=== PATIENT | male | born 1950 | race Caucasian/White ===

== ENCOUNTER 2016-07-02 07:54 | Day surgery (SDC) | payer OTHER ==
[2016-06-30 15:58] VITALS: BMI 26.6
[2016-07-02] MEDS ORDERED: oxyCODONE HCL 5 MG TABLET PO PRN (09:42)
[2016-07-02] MEDS ORDERED: PROMETHAZINE HCL 25 MG/1 ML VIAL IVPUSH PRN (09:42)
[2016-07-02] MEDS ORDERED: ONDANSETRON 4 MG/2 ML VIAL IVPUSH PRN (09:42)
--- NOTE | 2016-07-02 09:44 | HP ---
History & Physical Update - History History: No Change - Physical Physical: No Change - Assessment Assessment: No Change - Plan Plan: No Change
[2016-07-02] MEDS ORDERED: LACTATED RINGERS SOLUTION 1,000 ML IV SCH (09:45)
[2016-07-02] MEDS ORDERED: BUPIVACAINE HCL/PF 0.5% (5MG/ML) 10 ML VIAL ONE ×2 (09:58→11:15)
[2016-07-02] MEDS ORDERED: LIDOCAINE HCL 2% (20ML MULTI-DOSE VIAL) NR ONE (10:12)
[2016-07-02] MEDS ORDERED: MIDAZOLAM HCL 2 MG/2 ML SINGLE DOSE VIAL ONE (10:12)
[2016-07-02] MEDS ORDERED: PROPOFOL 20 ML ONE (10:12)
[2016-07-02] MEDS ORDERED: KETOROLAC TROMETHAMINE 30 MG/1 ML VIAL ONE (10:12)
[2016-07-02] MEDS ORDERED: ceFAZolin SODIUM 1 GM VIAL ONE (10:12)
[2016-07-02] MEDS ORDERED: ROCURONIUM BROMIDE 50 MG/5 ML VIAL ONE (10:12)
[2016-07-02] MEDS ORDERED: LIDOCAINE HCL 1%, 10 MG/ML (20ML VIAL) ONE (10:14)
[2016-07-02] MEDS ORDERED: ceFAZolin SODIUM 1 GM VIAL IVPB ONE (10:34)
[2016-07-02] MEDS ORDERED: GLYCOPYRROLATE 0.2 MG/1 ML VIAL ONE (11:11)
[2016-07-02] MEDS ORDERED: NEOSTIGMINE METHYLSULFATE 0.5 MG/ML - 10 ML MDV ONE (11:11)
[2016-07-02] MEDS ORDERED: BUPIVACAINE HCL/PF 0.5% (5MG/ML) 10 ML VIAL IJ ONE (11:12)
--- NOTE | 2016-07-02 12:00 | OP ---
Operative Note - Note: Operative Date: 07/02/16 Pre-Operative Diagnosis: Incarcerated left inguinal hernia. Operation: Repair of incarcerated left inguinal hernia with mesh. Findings: Large sac, with properitoneal fat herniating through the internal ring. Post-Operative Diagnosis: Same as Pre-op Surgeon: Danny Stein Pyrometer Operator: Torri Kenyon Anesthesiologist/[employer] MEDIA SPECIALIST: Sohan Jones Anesthesia: General Specimens Removed: Hernial sac Estimated Blood Loss (mls): 5 Operative Report Dictated: Yes
[2016-07-02 12:21] VITALS: TEMP 97.7
[2016-07-02] MEDS ORDERED: oxyCODONE HCL 5 MG TABLET ONE (13:38)
[2016-07-02] MEDS ORDERED: ONDANSETRON 4 MG/2 ML VIAL ONE (13:46)
--- NOTE | 2016-07-02 14:18 | SURG ---
Surgery Account Manager Note Account Manager: Torri Kenyon PA-C Date of Service: 07/02/16 Diagnosis: Incarcerated left inguinal hernia Procedure: Repair of incarcerated left inguinal hernia with mesh I was present for the entirety of the operative procedure. For further detail, please refer to operative report. Visit type - Case Type Case Type: Scheduled Admission - New patient This patient is new to me today: Yes Date on this admission: 07/02/16
--- NOTE | 2016-07-02 14:22 | OP ---
DATE OF OPERATION: 07/02/2016 PREOPERATIVE DIAGNOSIS: Incarcerated left inguinal hernia. POSTOPERATIVE DIAGNOSIS: Incarcerated left inguinal hernia. OPERATIVE PROCEDURE: Repair of incarcerated left inguinal hernia with plug and mesh. SURGEON: Alfredo Stein MD ICING AND GLAZE MAKER: RAN Calderon ANESTHESIA: General anesthesia. ANESTHESIOLOGIST: Sohan Jones MD OPERATIVE DESCRIPTION: This 65-year-old man had pain in the left groin with a large swelling in the left groin. Patient was found to have incarcerated left inguinal hernia. He is status post repair of right inguinal hernia in the past. Consent was obtained. Risks, benefits, and complications were discussed with the patient. He was given 1 g of Ancef. Timeout was called. General anesthesia was administered. The left groin was painted and draped. An incision was made in the left groin along a skin crease which was deepened to incise the skin, subcutaneous tissues, Agatha fascia, and external oblique aponeurosis. The ilioinguinal nerve was identified and preserved throughout the procedure. Cord structures were then isolated around a 1/2-inch [place] drain. The internal and external spermatic, cremasteric muscle, and fascia were then incised and the contents of the cord were exposed. The large sac was from the rest of the structures. This was carried all around to the internal ring. The sac had a wide neck and also had properitoneal fat protruding through the widened internal ring. The contents of the sac were then reduced. The sac was suture ligated at the neck with 3-0 Vicryl sutures. The sac was then divided distal to the ligature and sent to Pathology as a specimen. The peritoneum at the internal ring and behind the transversus abdominis muscle and fascia was then circumferentially and pushed into the abdominal cavity. A plug was then inserted through the internal ring. This was anchored with 2-0 Prolene sutures, 1 above and medial to the ring, another above and lateral to the ring. This was introduced through the internal oblique, transversus abdominis muscle, and fascia, brought through the internal ring, caught the outer leaf of the mesh, and then was reintroduced through the internal ring and brought out through the transversus abdominis and the internal oblique muscle. The plug was then inserted through the internal ring and placed behind the transversus abdominis muscle and fascia. Mesh was then placed across the posterior wall of the inguinal canal. This was anchored at the level of the internal ring with 2-0 Prolene sutures. The inferior leaf of the mesh was placed over the shelving edge of the inguinal ligament and anchored with the VersaTack tacking device. The superior leaf of the mesh was incorporated to the 2-0 Prolene suture holding the plug behind the transversus abdominis muscle and fascia and this was brought through the mesh and the knot was fashioned. The lateral suture incorporated both the leaves of the mesh as it was brought around the cord structures and placed over the internal oblique muscle. A few tackers had been placed to anchor the mesh over the internal oblique muscle. The repair was thus adequately performed. Hemostasis was satisfactory. The wound was irrigated. The external oblique aponeurosis was then approximated with continuous 3-0 Vicryl sutures, the Agatha fascia with buried interrupted 3-0 Vicryl sutures. Subcutaneous fat was also approximated with subcutaneous 3-0 Vicryl sutures. Skin was approximated with continuous 4-0 Monocryl sutures in a running subcuticular fashion. Marcaine 0.5% was injected into the wound. Estimated blood loss was 5 to 10 mL. Patient tolerated the procedure well, was extubated, and sent to the recovery room in satisfactory and stable condition. [place] NIETO/[id number]
[2016-07-02 15:59] VITALS: BP 141/90; PULSE 62
--- NOTE | 2016-07-05 11:08 | PATH ---
Surgical Pathology Report Patient Name: ARTHUR LOW [facility]. Rec. #: [id number] /Age/Gender: 1950 (Age: 65) / M Account: [id number] Location: [facility] Taken: 07/02/2016 Received: 07/02/2016 Reported: 07/05/2016 Physicians: Alfredo Stein M.D. Specimen(s) Received HERNIA SAC Clinical History Left incarcerated inguinal hernia Final Diagnosis SOFT TISSUE, LEFT INGUINAL, EXCISION: FIBROMEMBRANOUS TISSUE CONSISTENT WITH HERNIA SAC. Electronically Signed Abhijit Rincon M.D. Gross Description Received in formalin is a fragment of smith fibromembranous tissue and smith yellow fatty tissue measuring 5.5 xc 3 x 1 cm. Market Manager sections are submitted in one cassette. (AF) [email or web address]/07/04/2016
== END 2016-07-02 16:00 | disposition home or self-care (01) ==
LOC: JASU-SURG 07:54
PROVIDERS: ATTEND Specialist
PROC: 0YU60JZ Supplement Left Inguinal Region with Synthetic Substitute, Open Approach (ICD-10-PCS; principal; 2016-07-02 09:30)
DX: K40.30 Unilateral inguinal hernia, with obstruction, without gangrene, not specified as recurrent (principal)
CPT/HCPCS: 88302-TC; 94760

== ENCOUNTER 2016-07-02 19:50 | Emergency (ER) | payer OTHER ==
[2016-07-02 20:02] VITALS: BMI 26.6
--- NOTE | 2016-07-02 20:14 | PDOC ---
History of Present Illness - General Chief Complaint: Urinary Problem Stated Complaint: UNABLE TO URINATE/MOUTH DRY/NUMB/PAIN Time Seen by Provider: 07/02/16 20:06 History Source: Patient Exam Limitations: No Limitations - History of Present Illness Timing/Duration: reports: getting worse Abdominal Pain Onset Location: reports: suprapubic Pain Radiation: reports: no radiation Past History - Travel Traveled outside of the country in the last 30 days: No Close contact w/someone who was outside of country & ill: No - Past Medical History Allergies/Adverse Reactions: Allergies Allergy/AdvReac Type Severity Reaction Status Date / Time No Known Allergies Allergy Verified 07/02/16 20:02 Home Medications: Ambulatory Orders No Home Medications 0 dose .ROUTE UTDICT 03/31/13 Ibuprofen [Motrin -] 400 mg PO TID #21 tablet 07/02/16 Oxycodone HCl/Acetaminophen [Percocet 5-325 mg Tablet -] 1 tab PO Q6H PRN #20 tablet MDD 4 07/02/16 - Psycho/Social/Smoking Cessation Hx Anxiety: No Suicidal Ideation: No Smoking History: Never smoked Have you smoked in the past 12 months: No Number of Cigarettes Smoked Daily: 0 Information on smoking cessation initiated: No Hx Alcohol Use: No Drug/Substance Use Hx: No Substance Use Type: None Abd/GI Specific PMHX - Complaint Specific PMHX Comments:: 07/02/16 20:29 post op; Left incarcerated inguinal hernia repair today Review of Systems - Review of Systems Able to Perform ROS?: Yes Comments:: 07/02/16 20:30 CONSTITUTIONAL: Absent: fever, chills, diaphoresis, generalized weakness, malaise, loss of appetite HEENT: Absent: rhinorrhea, nasal congestion, throat pain, throat swelling, difficulty swallowing, mouth swelling, ear pain, eye pain, visual Changes CARDIOVASCULAR: Absent: chest pain, loss of consciousness, palpitations, irregular heart rate, peripheral edema RESPIRATORY: Absent: cough, shortness of breath, dyspnea with exertion, orthopnea, wheezing, stridor, hemoptysis GASTROINTESTINAL: Absent: abdominal pain, abdominal distension, nausea, vomiting, diarrhea, constipation, melena, hematochezia GENITOURINARY: Urinary retention x5h Absent: dysuria, frequency, urgency, hesitancy, hematuria, flank pain, genital pain MUSCULOSKELETAL: Absent: myalgia, arthralgia, joint swelling SKIN: Absent: rash, itching, pallor HEMATOLOGIC/IMMUNOLOGIC: Absent: easy bleeding, easy bruising, lymphadenopathy, frequent infections ENDOCRINE: Absent: unexplained weight gain, unexplained weight loss, heat intolerance, cold intolerance NEUROLOGIC: Absent: headache, focal weakness or paresthesias, dizziness, unsteady gait, seizure, mental status changes, bladder or bowel incontinence PSYCHIATRIC: Absent: anxiety, depression, suicidal or homicidal ideation, hallucinations. Is the patient limited Italian proficient: No *Physical Exam - Vital Signs Last Vital Signs Temp Pulse Resp BP Pulse Ox 97.7 F 95 H 21 142/116 100 07/02/16 19:57 07/02/16 19:57 07/02/16 19:57 07/02/16 19:57 07/02/16 19:57 - Physical Exam Comments: 07/02/16 20:31 GENERAL: Well developed, well nourished. Awake and alert. No acute distress. HEENT: Normocephalic, atraumatic. PERRLA, EOMI. No conjunctival pallor. Sclera are non- icteric. Moist mucous membranes. Oropharynx is clear. NECK: Supple. Full ROM. No JVD. Carotid pulses 2+ and symmetric, without bruits. No thyromegaly. No lymphadenopathy. CARDIOVASCULAR: Regular rate and rhythm. No murmurs, rubs, or gallops. Distal pulses are 2+ and symmetric. PULMONARY: No evidence of respiratory distress. Lungs clear to auscultation bilaterally. No wheezing, rales or rhonchi. ABDOMINAL: Soft. Non-tender. Non-distended. No rebound or guarding. No organomegaly. Normoactive bowel sounds. MUSCULOSKELETAL Normal range of motion at all joints. No bony deformities or tenderness. No CVA tenderness. EXTREMITIES: No cyanosis. No clubbing. No edema. No calf tenderness. SKIN: Warm and dry. Normal capillary refill. No rashes. No jaundice. NEUROLOGICAL: Alert, awake, appropriate. Cranial nerves 2-12 intact. No deficits to light touch and temperature in face, upper extremities and lower extremities. No motor deficits in the in face, upper extremities and lower extremities. Normoreflexic in the upper and lower extremities. Normal speech. Toes are down- going bilaterally. Gait is normal without ataxia. PSYCHIATRIC: Cooperative. Good eye contact. Appropriate mood and affect. Progress Note - Progress Note Progress Note: 65-year-old male presents to the emergency department complaining of urinary retention x5h after being discharged for a incarcerated left inguinal hernia repair. Patient complains of pelvic pressure. Patient denies any fever, chills, nausea/vomiting, chest pain, shortness of breath, flank pains. 2026hrs: Called Dr. Catalino Stein/ surgeon [phone] 4hrs: Spoke to Dr. Stein/ advise to call Dr. Christian/pt's PMD 2046hrs: Called Dr. Oliva [phone] 2048hrs: Dr. Stein called the Er/ says he spoke to DR. Christian whom says to send pt to Urology Dr. Weiss [phone] 2049hrs: Called Dr. Weiss/urology 2054hrs: Spoke to Dr. Weiss/agrees on d/c with leg bag and flomax .4 mg daily F/u on Tuesday *DC/Admit/Observation/Transfer Diagnosis at time of Disposition: Urinary retention - Discharge Dispostion Condition at time of disposition: Improved Admit: No - Referrals Referrals: Pina Christian MD [Primary Care Provider] - Maciel Weiss MD [Staff Physician] - - Patient Instructions Printed Discharge Instructions: DI for Urinary Retention in Men, How to Care for Your Mojica Catheter -- Male Additional Instructions: Please follow up with Dr. Weiss/urology this week. Take Flomax 04mg daily Return to the ER for any pain, fever/ blood in urine bag
[2016-07-02] MEDS ORDERED: TAMSULOSIN HCL 0.4 MG CAP.ER.24H (FP) PO ONE (20:53)
[2016-07-02] MEDS ORDERED: ACETAMINOPHEN 325 MG TABLET (FP) ONE (20:57)
[2016-07-02] MEDS ORDERED: TAMSULOSIN HCL 0.4 MG CAP.ER.24H (FP) ONE (20:57)
[2016-07-02 21:08] LABS: URINE APPEARANCE CLEAR; URINE BILIRUBIN NEGATIVE (NEGATIVE); URINE BLOOD NEGATIVE (NEGATIVE); URINE COLOR LTYELLOW; URINE GLUCOSE (UA) 2+ (NEGATIVE); URINE KETONE NEGATIVE (NEGATIVE); URINE LEUK ESTERASE NEGATIVE (NEGATIVE); URINE NITRITE NEGATIVE (NEGATIVE); URINE PROTEIN NEGATIVE (NEGATIVE); URINE UROBILINOGEN NEGATIVE E.U./dl (0.2-1.0)
[2016-07-02 21:34] VITALS: BP 135/80; PULSE 87; TEMP 98.7
== END 2016-07-02 21:34 | disposition home or self-care (01) ==
LOC: JER 19:50
PROC: 0T9B70Z Drainage of Bladder with Drainage Device, Via Natural or Artificial Opening (ICD-10-PCS; principal; 2016-07-02)
DX: R33.9 Retention of urine, unspecified (principal)
CPT/HCPCS: 81003; 87086; 99282-25

== ENCOUNTER 2016-07-03 17:46 | Emergency (ER) | payer OTHER ==
[2016-07-03 17:51] VITALS: TEMP 98.1; BMI 26.6
--- NOTE | 2016-07-03 17:54 | PDOC ---
History of Present Illness <Narciso Woo - Last Filed: 07/03/16 19:22> - General History Source: Patient, Old Records Exam Limitations: No Limitations - History of Present Illness Initial Comments: 07/03/16 18:34 The patient is a 65 year old male, with a significant past medical history of a recent incarcerated left inguinal hernia repair (07/02/2016), who presents to the emergency department with penile bruising and swelling since earlier today. The patient had a left inguinal hernia repaired yesterday morning and later presented to the ED yesterday evening for urinary retention. The patient had a catheter placed and was discharged home but returns to the ED today with penile bruising and swelling. The patient is additionally reports back pain. The patient denies fever, chills, nausea, vomiting, diarrhea or abdominal pain. The patients is with him in the ED. Allergies: None reported. Past Surgical History: Incarcerated Left Inguinal Hernia Repair (07/02/2016). Social History: Non smoker. Denies alcohol or drug use. PCP: Dr. Christian Surgeon: Dr. Stein <Maira Chiang - Last Filed: 07/03/16 19:29> - General Chief Complaint: Urinary Catheter Problem Stated Complaint: CATHATER PROBLEM Time Seen by Provider: 07/03/16 17:53 Past History - Surgical History Abdominal Surgery: Yes (Hernia repair 2015) - Immunization History Immunization Up to Date: Yes - Psycho/Social/Smoking Cessation Hx Anxiety: No Suicidal Ideation: No Smoking History: Never smoked Have you smoked in the past 12 months: No Number of Cigarettes Smoked Daily: 0 Information on smoking cessation initiated: No Hx Alcohol Use: No Drug/Substance Use Hx: No Substance Use Type: None <Narciso Woo - Last Filed: 07/03/16 19:22> <Maira Chiang - Last Filed: 07/03/16 19:29> - Past Medical History Allergies/Adverse Reactions: Allergies Allergy/AdvReac Type Severity Reaction Status Date / Time No Known Allergies Allergy Verified 07/03/16 17:51 Home Medications: Ambulatory Orders Oxycodone HCl/Acetaminophen [Percocet 5-325 mg Tablet -] 1 tab PO Q6H PRN #20 tablet MDD 4 07/02/16 Tamsulosin HCl [Flomax] 0.4 mg PO DAILY #30 cap.er.24h 07/02/16 Ciprofloxacin [Cipro (Restricted To Id)] 500 mg PO BID #20 tablet 07/03/16 Ibuprofen [Motrin -] 400 mg PO TID PRN 07/03/16 Review of Systems - Review of Systems Able to Perform ROS?: Yes Comments:: 07/03/16 18:21 CONSTITUTIONAL: No fever, no chills, no fatigue EYES: No visual changes ENT: No ear pain, no sore throat CARDIOVASCULAR: No chest pain, no palpitations RESPIRATORY: No cough, no SOB GI: No abdominal pain, no nausea, no vomiting, no constipation, no diarrhea GENITOURINARY: +Penile bruising and swelling. No dysuria, no frequency, no hematuria MUSCULOSKELETAL: +Back pain. No joint pain, no myalgias SKIN: No rash NEURO: No headache <Maira Chiang - Last Filed: 07/03/16 19:29> *Physical Exam - Vital Signs Last Vital Signs Temp Pulse Resp BP Pulse Ox 98.1 F 96 H 18 144/113 98 07/03/16 17:47 07/03/16 17:47 07/03/16 17:47 07/03/16 17:47 07/03/16 17:47 - Physical Exam Comments: 07/03/16 19:23 EXAMINATION CONSTITUTIONAL: Well-appearing; well-nourished; in no apparent distress HEAD: Normocephalic; atraumatic EYES: PERRL; EOM intact ENMT: External appears normal; normal oropharynx NECK: Supple; non-tender; no cervical lymphadenopathy CARD: Normal S1, S2; no murmurs, rubs, or gallops RESP: Normal chest excursion with respiration; breath sounds clear and equal bilaterally; no wheezes, rhonchi, or rales ABD: Soft, non-distended; + well-appearing left inguinal incision, with surrounding ecchymosis, without significant erythema/fluctuance or discharge. There is no tenderness to palpation; no CVA tenderness bilaterally; : +Scrotal and penile edema and subcutaneous ecchymoses likely related to post op changes; there is no evidence of phimosis or paraphimosis at this time; indwelling Mojica catheter is in place with drainage of clear urine; EXT: Normal ROM in all four extremities; non-tender to palpation; distal pulses intact; + bilateral paraspinal lumbar tenderness to palpation reproducing the patient's symptoms; straight leg raise is negative bilaterally; SKIN: Warm, dry, no rash NEURO: No focal neurological deficiencies. <Narciso Woo - Last Filed: 07/03/16 19:22> - Vital Signs Last Vital Signs Temp Pulse Resp BP Pulse Ox 98.1 F 96 H 18 144/113 98 07/03/16 17:47 07/03/16 17:47 07/03/16 17:47 07/03/16 17:47 07/03/16 17:47 <Maira Chiang - Last Filed: 07/03/16 19:29> Medical Decision Making - Medical Decision Making 07/03/16 19:25 Patient is well-appearing 65-year-old male, status post incarcerated left hernia repair who presented with acute urinary retention shortly postop and and underwent Mojica catheter placement presents with discoloration of the incisional site as well as penis and scrotum likely related to postoperative changes. Mojica catheter appears to be functioning properly. CT that and pelvis reveals no evidence of collection or significant hematoma. Left varicocele is noted. Urinalysis may be consistent with UTI. Will treat with Cipro. Will discharge. <Narciso Woo - Last Filed: 07/03/16 19:22> - Medical Decision Making 07/03/16 19:29 EXAM: CT/ ABDOMEN & PELVIS WITHOUT CONTRAST Reviewed By: Dr. Nicki Alatorre IMPRESSION: Left inguinal herniorrhaphy. Surgical changes left inguinal canal, including emphysema extending to left lower quadrant abdominal wall. No large hematoma or focal fluid collection. Left varicocele. No nephrolithiasis, ureterolithiasis or obstructive uropathy. No bladder calculi. Right renal cystic foci. Unremarkable pancreas. Gallbladder sludge. Small capsular calcification spleen. Multiple probable hepatic cysts. Liver dome incompletely seen. No bowel obstruction, colitis, free fluid or free air. Normal appendix. Mojica catheter in bladder. Small umbilical hernia containing fat. <Maira Chiang - Last Filed: 07/03/16 19:29> *DC/Admit/Observation/Transfer - Attestations Physician Attestion: 07/03/16 19:22 The documentation was prepared by the scribe under my direct supervision. I have reviewed the documentation which correctly represents the findings, medical decision-making and critical action taken by me. <Narciso Woo - Last Filed: 07/03/16 19:22> - Attestations Scribe Attestion: 07/03/16 18:00 Documentation prepared by Maira Chiang, acting as medical collections specialist for Narciso Woo MD. <Maira Chiang - Last Filed: 07/03/16 19:29> Diagnosis at time of Disposition: Post-operative complication Qualifiers: Surgical complication system/body Area: subcutaneous tissue Surgical complication type: hematoma Procedure type: dermatologic Qualified Code(s): L76.31 - Postprocedural hematoma of skin and subcutaneous tissue following a dermatologic procedure Urinary tract infection Qualifiers: Urinary tract infection type: acute cystitis Hematuria presence: with hematuria Qualified Code(s): N30.01 - Acute cystitis with hematuria - Discharge Dispostion Disposition: HOME Condition at time of disposition: Stable - Prescriptions Prescriptions: Ciprofloxacin [Cipro (Restricted To Id)] 500 mg PO BID #20 tablet - Referrals Referrals: Pina Christian MD [Primary Care Provider] - Danny Stein MD [Staff Physician] - - Patient Instructions Printed Discharge Instructions: DI for Hematoma (Bruise), DI for Urinary Tract Infection (UTI)
[2016-07-03] MEDS ORDERED: OXYCODONE/APAP 5/325MG COMBO TABLET ONE (18:05)
[2016-07-03] MEDS ORDERED: OXYCODONE/APAP 5/325MG COMBO TABLET PO ONE (18:07)
[2016-07-03 18:30] LABS: URINE APPEARANCE CLOUDY; URINE BILIRUBIN NEGATIVE (NEGATIVE); URINE COLOR YELLOW; URINE GLUCOSE (UA) NEGATIVE (NEGATIVE); URINE KETONE NEGATIVE (NEGATIVE); URINE NITRITE NEGATIVE (NEGATIVE); URINE PROTEIN NEGATIVE (NEGATIVE); URINE UROBILINOGEN NEGATIVE E.U./dl (0.2-1.0)
[2016-07-03 18:39] LABS: URINE BLOOD 2+ (NEGATIVE); URINE LEUK ESTERASE 1+ (NEGATIVE)
[2016-07-03 18:50] LABS: URINE BACTERIA RARE /hpf (NONE SEEN); URINE MUCUS RARE; URINE RBC 35 /hpf (0-3); URINE WBC 11 /hpf (3-5)
[2016-07-03 19:10] VITALS: BP 132/79; PULSE 62
== END 2016-07-03 19:40 | disposition home or self-care (01) ==
LOC: JER 17:46
DX: L76.32 Postprocedural hematoma of skin and subcutaneous tissue following other procedure (principal); N39.0 Urinary tract infection, site not specified
CPT/HCPCS: 74176; 81003; 81015; 87086; 99284-25